=== PATIENT | male | born 1980 | race Caucasian/White ===

== ENCOUNTER 2018-04-19 19:21 | Emergency (ER) | payer SELFPAY ==
[~2018-04-19] VITALS: Ht 175.3 cm; Wt 84.8 kg
[2018-04-19] MEDS ORDERED: ULTRAM50 MG PO (21:41)
[2018-04-19] MEDS ORDERED: MOTRIN800 MG PO (21:41)
[2018-04-19 22:12] VITALS: BP 148/82
== END 2018-04-19 22:14 | disposition home or self-care (01) ==
LOC: EME 19:21 → TRA 19:21
DX: S40.022A Contusion of left upper arm, initial encounter (principal); W28.XXXA Contact with powered lawn mower, initial encounter; Y93.H2 Activity, gardening and landscaping; Y92.007 Garden or yard of unspecified non-institutional (private) residence as the place of occurrence of the external cause
CPT/HCPCS: 73030; 73060; 73080; 73090; 73110; 73502; 99281; 99284